=== PATIENT | male | born 1980 | race Two or more races ===

== ENCOUNTER 2016-04-20 14:50 | Inpatient (IN) | payer OTHER ==
[2016-04-20 18:07] VITALS: BMI 31.0
--- NOTE | 2016-04-20 21:58 | HP ---
COWS - Scale Resting Pulse: 0= [place] 80 or Below Sweatin=Flushed/Facial Moisture Restless Observation: 3= Extraneous Movement Pupil Size: 0= Normal to Room Light Bone or Joint Aches: 2= Severe Diffuse Aches Runny Nose/ Eye Tearin= Runny Nose/Eyes GI Upset > 30mins: 3= Vomiting/Diarrhea Tremor Observation: 1= Tremor [place], Not Seen Yawning Observation: 1= 1-2x During Session Anxiety or Irritability: 2=Irritable/Anxious Goose Flesh Skin: 0=Smooth Skin COWS Score: 16 CIWA Score - CIWA Score Nausea/Vomitin Muscle Tremors: 2 Anxiety: 2 Agitation: 2 Paroxysmal Sweats: 2 Orientation: 1-Uncertain about Date Tacttile Disturbances: 0-None Auditory Disturbances: 0-None Visual Disturbances: 0-None Headache: 1-Very Mild CIWA-Ar Total Score: 15 Admission ROS S - HPI Chief Complaint: WITHDRAWAL SYMPTOMS Allergies/Adverse Reactions: Allergies Allergy/AdvReac Type Severity Reaction Status Date / Time aspirin Allergy Intermediate Nausea Verified 01/23/16 12:29 ibuprofen Allergy Nausea Verified 01/23/16 12:29 chlorpromazine HCl AdvReac Severe Swelling Verified 01/23/16 12:29 [From Thorazine] haloperidol [From Haldol] AdvReac Severe Swelling Verified 01/23/16 12:29 haloperidol lactate AdvReac Severe Swelling Verified 01/23/16 12:29 [From Haldol] History of Present Illness: 36 Y.O. MAN WITH AN EXTENSIVE HISTORY OF DRUG AND ALCOHOL DEPENDENCE IS SEEKING DETOX TREATMENT. HE HAS PREVIOUSLY COMPLETED DETOX AND REPORTS HAVING A HISTORY OF 3 YEARS OF SOBRIETY. Exam Limitations: No Limitations - Ebola screening Have you traveled outside of the country in the last 21 days: No Have you been sick,other than usual withdrawal symptoms: No - Review of Systems Constitutional: Chills, Diaphoresis, Loss of Appetite, Night Sweats, Changes in sleep EENT: reports: Blurred Vision, Double Vision, Tearing, Nose Congestion Respiratory: reports: No Symptoms reported Cardiac: reports: Lightheadedness GI: reports: Nausea, Vomiting : reports: No Symptoms Reported Musculoskeletal: reports: Back Pain, Other (ARTHRITIS TO B/L KNEES) Integumentary: reports: Dryness Neuro: reports: Headache, Seizure (ETOH INDUCED) Endocrine: reports: No Symptoms Reported Hematology: reports: No Symptoms Reported Psychiatric: reports: Judgement Intact, Depressed Other Systems: Reviewed and Negative Patient History - Patient Medical History Hx Anemia: No Hx Asthma: No Hx Chronic Obstructive Pulmonary Disease (COPD): No Hx Cancer: No Hx Cardiac Disorders: No Hx Congestive Heart Failure: No Hx Hypertension: No Hx Hypercholesterolemia: No Hx Pacemaker: No HX Cerebrovascular Accident: No Hx Seizures: Yes (ETOH INDUCED-2016) Hx Dementia: No Hx Diabetes: No Hx Gastrointestinal Disorders: No Hx Liver Disease: No Hx Genitourinary Disorders: No Hx Sexually Transmitted Disorders: No Hx Renal Disease (ESRD): No Hx Thyroid Disease: No Hx Human Immunodeficiency Virus (HIV): No (Last Tested: 2016: NEGATIVE.) Hx Hepatitis C: No (Uncertain if he has ever been tested.) Hx Depression: Yes (No meds.) Hx Suicide Attempt: No (PT. DENIES CURRENT SI / HI.) Hx Bipolar Disorder: Yes (No current meds. Stopped previous meds. b/c of side effects.) Hx Schizophrenia: No - Patient Surgical History Past Surgical History: Yes Hx Neurologic Surgery: No Hx Cataract Extraction: No Hx Cardiac Surgery: No Hx Lung Surgery: No Hx Breast Surgery: No Hx Breast Biopsy: No Hx Abdominal Surgery: No Hx Appendectomy: No Hx Cholecystectomy: No Hx Genitourinary Surgery: No Hx Section: No Hx Orthopedic Surgery: Yes (reconstructive knee sx as a child) Anesthesia Reaction: No - PPD History Date: 08/06/12 Results: positive PPD PPD to be Administered?: No - Reproductive History Patient is a Female of Child Bearing Age (11 -55 yrs old): No - Smoking Cessation Smoking history: Current every day smoker Have you smoked in the past 12 months: Yes Aproximately how many cigarettes per day: 7 Cigars Per Day: 0 Hx Chewing Tobacco Use: No Initiated information on smoking cessation: Yes 'Breaking Loose' booklet given: 04/20/16 - Substance & Tx. History Hx Alcohol Use: Yes Hx Substance Use: Yes Substance Use Type: Alcohol, Heroin Hx Substance Use Treatment: Yes (DETOX AND REHAB ) - Substances Abused Alcohol Route: Oral Frequency: Daily Amount used: 2-3 PINTS OF LIQUOR Age of first use: 13 Date of Last Use: 04/20/16 Heroin Route: Inhalation Frequency: 3-6 times per week Amount used: 1-2 BAGS Age of first use: 35 Date of Last Use: 04/20/16 Family Disease History - Family Disease History Family Disease History: Other: Father (ETOH DEPENDENCE ) Admission Physical Exam [facility] - Vital Signs Vital Signs: Vital Signs - 24 hr 04/20/16 18:05 Temperature 98.5 F Pulse Rate 66 Respiratory 18 Rate Blood Pressure 128/75 - Physical General Appearance: Yes: Disheveled, Sweating, Anxious HEENTM: Yes: Hearing grossly Normal, Normal ENT Inspection, Normocephalic, Normal Voice Respiratory: Yes: Chest Non-Tender, Lungs Clear, Normal Breath Sounds, No Respiratory Distress, No Accessory Muscle Use Neck: Yes: No masses,lesions,Nodules, Supple, Trachea in good position Breast: Yes: Breast Exam Deferred Cardiology: Yes: Regular Rhythm, Regular Rate, S1, S2 Abdominal: Yes: Non Tender, Flat, Soft Genitourinary: Yes: Within Normal Limits Back: Yes: Normal Inspection Musculoskeletal: Yes: full range of Motion, Gait Steady Extremities: Yes: Normal Capillary Refill, Normal Inspection, Normal Range of Motion, Non-Tender Neurological: Yes: Alert, Normal Mood/Affect, Normal Response Integumentary: Yes: Normal Color, Dry, Warm Lymphatic: Yes: Within Normal Limits - Diagnostic (1) Alcohol dependence with uncomplicated withdrawal Current Visit: Yes Status: Chronic (2) Alcohol related seizure Current Visit: No Status: Chronic (3) Arthritis Current Visit: Yes Status: Chronic (4) Opioid dependence with withdrawal Current Visit: Yes Status: Chronic Cleared for Admission [facility] - Detox or Rehab [facility] Level of Care: Medically Managed Detox Regimen/Protocol: Methadone/Librium [facility] Breath Alcohol Content Breath Alcohol Content: 0 Urine Drug Screen - Results Drug Screen Negative: No Urine Drug Screen Results: OPI-Opiates
[2016-04-20] MEDS ORDERED: guaiFENesin/D-METHORPHAN HB 10 ML UNIT-DOSE CUPS PO PRN (22:09)
[2016-04-20] MEDS ORDERED: MAGNESIUM HYDROX 2400MG/30ML ORAL SUSPENSION 30 ML CUP PO PRN (22:09)
[2016-04-20] MEDS ORDERED: LOPERAMIDE HCL 2 MG CAPSULE PO PRN (22:09)
[2016-04-20] MEDS ORDERED: P-EPHED 60MG/TRIPROLIDI 2.5MG TABLET PO PRN (22:09)
[2016-04-20] MEDS ORDERED: chlordiazePOXIDE HCL 25 MG CAPSULE PO ONE (22:09)
[2016-04-20] MEDS ORDERED: hydrOXYzine PAMOATE 50 MG CAPSULE (FP) PO PRN (22:09)
[2016-04-20] MEDS ORDERED: MAGNESIUM CITRATE 300 ML BOTTLE PO PRN (22:09)
[2016-04-20] MEDS ORDERED: METHADONE HCL 10 MG TABLET (FOR DETOX USE ONLY) PO ONE ×2 (22:09→23:00)
[2016-04-20] MEDS ORDERED: MENTHOL/PHENOL 1 EACH UD MM PRN (22:09)
[2016-04-20] MEDS ORDERED: ACETAMINOPHEN 325 MG TABLET (FP) PO PRN (22:09)
[2016-04-20] MEDS ORDERED: diphenhydrAMINE HCL 50 MG CAPSULE PO PRN (22:09)
[2016-04-20] MEDS ORDERED: MAG HYDROX/AL HYDROX/SIMETH 30 ML UNIT-DOSE CUP PO PRN (22:09)
[2016-04-20] MEDS: chlordiazePOXIDE HCL 25 MG CAPSULE PO SCH (23:39)
[2016-04-20] MEDS: MINERAL OIL/PETROLAT/WATER TOPICAL CREAM 113 GM JAR TP SCH (23:55)
[2016-04-20] MEDS: TOLNAFTATE 1% CREAM 15 GM TUBE TP SCH (23:55)
[2016-04-21] MEDS: chlordiazePOXIDE HCL 25 MG CAPSULE PO PRN ×2 (03:03→13:13)
[2016-04-21] MEDS: chlordiazePOXIDE HCL 25 MG CAPSULE PO SCH ×2 (05:25→10:24)
--- NOTE | 2016-04-21 09:41 | PN ---
[facility] CIWA - CIWA Score Nausea/Vomitin Muscle Tremors: 3 Anxiety: 3 Agitation: 2 Paroxysmal Sweats: 1-Minimal Palms Moist Orientation: 0-Oriented Tacttile Disturbances: 1-Very Mild Itch/Numbness Auditory Disturbances: 1-Very Mild Visual Disturbances: 1-Very Mild Sensitivity Headache: 2-Mild CIWA-Ar Total Score: 17 [facility] COWS - Scale Resting Pulse: 0= [place] 80 or Below Sweatin= Chills/Flushing Restless Observation: 3= Extraneous Movement Pupil Size: 1= Pupils >than Normal Bone or Joint Aches: 2= Severe Diffuse Aches Runny Nose/ Eye Tearin= Runny Nose/Eyes GI Upset > 30mins: 3= Vomiting/Diarrhea Tremor Observation of Outstretched Hands: 2= Slight Tremor Visible Yawning Observation: 1= 1-2x During Session Anxiety or Irritability: 2=Irritable/Anxious Goose Flesh Skin: 0=Smooth Skin COWS Score: 17 [facility] Progress Note (SOAP) Subjective: ALERT,IRRITABLE,ANXIOUS,INTERRUPTED SLEEP,TREMOR,PAIN IN THE BODY AND BACK Objective: 04/21/16 09:39 Vital Signs Temperature 98.3 F 04/21/16 06:23 Pulse Rate 60 04/21/16 06:23 Respiratory Rate 16 04/21/16 06:23 Blood Pressure 122/74 04/21/16 06:23 O2 Sat by Pulse Oximetry (%) EKG SINUS BRADYCARDIA 48/MIN NO CHEST PAIN,NO SOB,NO DIZZINESS LABS PENDING Assessment: 04/21/16 09:40 WITHDRAWAL SYMPTOM Plan: CONTINUE DETOX
[2016-04-21] MEDS ORDERED: PRENATAL VITAMINS W/ FOLIC ACID TABLET (FP) PO SCH (10:00)
[2016-04-21] MEDS ORDERED: METHADONE HCL 10 MG TABLET (FOR DETOX USE ONLY) PO SCH (10:00)
[2016-04-21] MEDS: TOLNAFTATE 1% CREAM 15 GM TUBE TP SCH (10:25)
[2016-04-21] MEDS: MINERAL OIL/PETROLAT/WATER TOPICAL CREAM 113 GM JAR TP SCH (10:25)
[2016-04-21] MEDS ORDERED: COLLOIDAL OATMEAL 1 BAR EACH TP PRN (10:28)
[2016-04-21 11:22] LABS: MCHC 33.7 g/dl (32.0-35.9); MEAN CELL VOLUME 97.8 fl (80-96); MEAN PLT VOLUME 10.5 fl (7.5-11.1); PLATELET COUNT 149 K/MM3 (134-434); RDW 14.2 % (11.9-15.9); WHITE BLOOD COUNT 7.4 K/mm3 (4.0-10.0)
[2016-04-21 11:40] LABS: ALBUMIN 3.9 g/dl (3.4-5.0); ALK PHOS 80 U/L (45-117); ANION GAP 7 (8-16); BILIRUBIN,TOTAL 0.5 mg/dL (0.2-1.0); CALCIUM 8.8 mg/dL (8.5-10.1); CO2 29 mmol/L (21-32); CREATININE 0.8 mg/dL (0.7-1.3); GLUCOSE,RANDOM 71 mg/dL (74-106); SGOT/AST 21 U/L (15-37); SGPT/ALT 14 U/L (12-78); TOT PROT 7.3 g/dl (6.4-8.2)
[2016-04-21 12:55] LABS: URINE APPEARANCE CLEAR; URINE BILIRUBIN NEGATIVE (NEGATIVE); URINE COLOR YELLOW; URINE GLUCOSE (UA) NEGATIVE (NEGATIVE); URINE KETONE NEGATIVE (NEGATIVE); URINE LEUK ESTERASE NEGATIVE (NEGATIVE); URINE NITRITE NEGATIVE (NEGATIVE); URINE PROTEIN NEGATIVE (NEGATIVE); URINE UROBILINOGEN NEGATIVE E.U./dl (0.2-1.0)
[2016-04-21 13:00] LABS: URINE BLOOD 1+ (NEGATIVE)
[2016-04-21 13:09] LABS: URINE BACTERIA RARE /hpf (NONE SEEN); URINE MUCUS RARE; URINE RBC 9 /hpf (0-3); URINE WBC 1 /hpf (3-5)
--- NOTE | 2016-04-21 13:30 | CONSULT ---
[facility] Psychiatric Consult - Data Date of interview: 04/21/16 Admission source: [facility] Identifying data: Another admission to [facility] for this 36 y/o male seeking detox treatment on for heroin and alcohol dependence.Patient is single,a father of two,domiciled,unemployed and supported on [facility] benefits. Substance Abuse History: - Smoking Cessation. Smoking history: Current every day smoker. Have you smoked in the past 12 months: Yes. Aproximately how many cigarettes per day: 7. Cigars Per Day: 0. Hx Chewing Tobacco Use: No. Initiated information on smoking cessation: Yes. 'Breaking Loose' booklet given : 04/20/16. - Substance & Tx. History. Hx Alcohol Use: Yes. Hx Substance Use : Yes. Substance Use Type: Alcohol, Heroin. Hx Substance Use Treatment: Yes ( DETOX AND REHAB ). - Substances Abused. Alcohol. Route: Oral. Frequency: Daily. Amount used: 2-3 PINTS OF LIQUOR. Age of first use: 13. Date of Last Use: 04/20/16. Heroin. Route: Inhalation. Frequency: 3-6 times per week. Amount used: 1-2 BAGS. Age of first use: 35. Date of Last Use: 04/20/16. Confirmed by patient in this interview. Medical History: Arthritis,low back pain and a history of substance-related seizures. Psychiatric History: History of multiple psychiatric hospitalizations (onset at age 16).Diagnosed with Bipolar Disorder.Records indicate treatment with numerous medications (bupropion,neurontin,risperdal,seroquel,topiramate,klonopin ,valproate,quetiapine and others).Mr Walker reports non adherence to aftercare ( for more than three consecutive months).He is still assigned to [facility] but he reports that he has not kept his appointments.History of past treatment at [facility], [facility] and [facility].Shows no interest for psychiatric care.Mr Walker declines to resume psychotropic medications with the exception of his detox regimen.Patient complains of chronic insomnia and he requests zolpidem at bedtime.No reported history of suicide attempts. Physical/Sexual Abuse/Trauma History: Patient denies. Additional Comment: Urine Drug Screen Results: OPI-Opiates.Noted. Mental Status Exam - Mental Status Exam Alert and Oriented to: Time, Place, Person Cognitive Function: Good Patient Appearance: Well Groomed Mood: Euthymic Affect: Appropriate, Normal Range Patient Behavior: Fatigued, Appropriate, Cooperative Speech Pattern: Clear Voice Loudness: Normal Thought Process: Goal Oriented Thought Disorder: Not Present Hallucinations: Denies Suicidal Ideation: Denies Homicidal Ideation: Denies Insight/Judgement: Poor Sleep: Poorly, Difficulty falling asleep Appetite: Good Muscle strength/Tone: Normal Gait/Station: Normal Psychiatric Findings - Problem List ([place] 1, 2,3) (1) Alcohol dependence with uncomplicated withdrawal Current Visit: Yes Status: Acute (2) Opioid dependence with withdrawal Current Visit: Yes Status: Acute (3) Nicotine dependence Current Visit: Yes Status: Acute Qualifiers: Nicotine product type: cigarettes Substance use status: uncomplicated Qualified Code(s): F17.210 - Nicotine dependence, cigarettes, uncomplicated (4) Substance induced mood disorder Current Visit: Yes Status: Acute (5) Bipolar disorder Current Visit: Yes Status: Chronic Qualifiers: Active/Remission status: currently active Current episode severity: moderate Comment: Historical diagnosis. (6) Arthritis Current Visit: Yes Status: Chronic (7) Paronychia of finger Current Visit: Yes Status: Acute Qualifiers: Laterality: right Qualified Code(s): L03.011 - Cellulitis of right finger (8) Low back pain Current Visit: Yes Status: Chronic Qualifiers: Chronicity: chronic Back pain laterality: bilateral Sciatica presence: with sciatica presence unspecified Qualified Code(s): M54.5 - Low back pain (9) Insomnia Current Visit: Yes Status: Acute - Initial Treatment Plan Initial Treatment Plan: Psychoeducation.Detoxification.Zolpidem 10 mg po hs prn.Patient made aware of the risk of parasomnias.He agrees with this plan.Observation.
[2016-04-21] MEDS ORDERED: ZOLPIDEM TARTRATE 5 MG TABLET PO PRN ×2 (13:32→13:50)
[2016-04-21 14:19] VITALS: BP 144/98; PULSE 58; TEMP 98.5
[2016-04-21] MEDS ORDERED: VITAMINS A AND D TOPICAL OINTMENT 60 GM TUBE TP SCH (18:00)
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
--- NOTE | 2016-04-21 18:48 | DS ---
[facility] Detox Discharge Summary Admission Date: 04/20/16 Discharge Date: 04/21/16 - History Present History: Alcohol Dependence, Opioid Dependence Additional Comments: patient is threatening to kill the nursing staff,securities called and present on the unit,administrative discharge,escorted off unit by securities, nursing crossing supervisor on duty present on the unit Pertinent Past History: seizure arthritis bipolar disorder nicotine dependence - Physical Exam Results Vital Signs: Vital Signs Temperature 98.5 F 04/21/16 14:19 Pulse Rate 58 L 04/21/16 14:19 Respiratory Rate 20 04/21/16 14:19 Blood Pressure 144/98 04/21/16 14:19 O2 Sat by Pulse Oximetry (%) Pertinent Admission Physical Exam Findings: withdrawal symptom - Medication Discharge Medications: Ambulatory Orders Sulfamethoxazole/Trimethoprim [Bactrim Ds Tablet] 1 each PO BID #14 tablet 01/22 Sulfamethoxazole/Trimethoprim [Bactrim DS -] 1 each PO BID #10 tablet 01/25/16 - Diagnosis (1) Alcohol dependence with uncomplicated withdrawal Status: Acute (2) Insomnia Status: Acute (3) Nicotine dependence Status: Acute Qualifiers: Nicotine product type: cigarettes Substance use status: uncomplicated Qualified Code(s): F17.210 - Nicotine dependence, cigarettes, uncomplicated (4) Opioid dependence with withdrawal Status: Acute (5) Arthritis Status: Chronic (6) Bipolar disorder Status: Chronic Qualifiers: Active/Remission status: currently active Current episode severity: moderate (7) Seizure Status: Chronic Qualifiers: Convulsion type: simple febrile Qualified Code(s): R56.00 - Simple febrile convulsions
[2016-04-21] MEDS ORDERED: THIAMINE HCL 100 MG TABLET (FP) PO SCH (22:00)
[2016-04-21] MEDS ORDERED: chlordiazePOXIDE HCL 25 MG CAPSULE PO SCH (23:00)
[2016-04-22] MEDS ORDERED: METHADONE HCL 5 MG TABLET (FOR DETOX USE ONLY) PO SCH (10:00)
--- NOTE | 2016-04-22 22:45 | EKG ---
Test Reason : Blood Pressure : / mmHG Vent. Rate : 048 BPM Atrial Rate : 048 BPM P-R Int : 184 ms QRS Dur : 092 ms QT Int : 396 ms P-R-T Axes : 043 081 064 degrees QTc Int : 353 ms SINUS BRADYCARDIA EARLY REPOLARIZATION OTHERWISE NORMAL ECG NO PREVIOUS ECGS AVAILABLE Confirmed by TASH CLANCY MD ([id number]) on 04/22/2016 10:45:32 PM Referred By: Denys Thomas Confirmed By:TASH CLANCY MD
[2016-04-22] MEDS ORDERED: chlordiazePOXIDE 5 MG CAPSULE PO SCH (23:00)
[2016-04-23] MEDS ORDERED: chlordiazePOXIDE HCL 10 MG CAPSULE PO SCH (23:00)
[2016-04-24] MEDS ORDERED: METHADONE HCL 10 MG TABLET (FOR DETOX USE ONLY) PO SCH (10:00)
[2016-04-25] MEDS ORDERED: METHADONE HCL 5 MG TABLET (FOR DETOX USE ONLY) PO SCH (06:00)
== END 2016-04-21 17:00 | disposition home or self-care (01) | DRG 773 ==
LOC: YASAS 14:50 → Y6N 21:20
PROVIDERS: ADMIT Internal Medicine; ATTEND Internal Medicine
PROC: HZ2ZZZZ Detoxification Services for Substance Abuse Treatment (ICD-10-PCS; principal; 2016-04-21)
DX: F11.23 Opioid dependence with withdrawal (principal); F10.230 Alcohol dependence with withdrawal, uncomplicated; F17.210 Nicotine dependence, cigarettes, uncomplicated; F31.9 Bipolar disorder, unspecified; F19.24 Other psychoactive substance dependence with psychoactive substance-induced mood disorder; G47.00 Insomnia, unspecified; R56.00 Simple febrile convulsions; M12.9 Arthropathy, unspecified; L03.011 Cellulitis of right finger; M54.5 Low back pain; G89.29 Other chronic pain; F91.8 Other conduct disorders
CPT/HCPCS: 36415; 80053; 81003; 81015; 85027; 86593; 93005; 93010

== ENCOUNTER 2018-02-05 12:24 | Inpatient (IN) | payer OTHER ==
[2018-02-05 15:37] VITALS: BMI 27.1
--- NOTE | 2018-02-05 18:00 | HP ---
CIWA Score Nausea/Vomitin-Mild Nausea/No Vomiting Muscle Tremors: 1-None Visible, but [place] Anxiety: 4-Mod. Anxious/Guarded Agitation: 4-Moderately Restless Paroxysmal Sweats: 5 Orientation: 3-Disoriented Date>2 days Tacttile Disturbances: 2-Mild Itch/Numbness/Burn Auditory Disturbances: 1-Very Mild Visual Disturbances: 2-Mild Sensitivity Headache: 3-Moderate CIWA-Ar Total Score: 26 - Admission Criteria [facility] Guidelines: Admission for Medically Managed Detox: Requires at least one of the followin. CIWA greater than 12 2. Seizures within the past 24 hours 3. Delirium tremens within the past 24 hours 4. Hallucinations within the past 24 hours 5. Acute intervention needed for co occurring medical disorder 6. Acute intervention needed for co occurring psychiatric disorder 7. Severe withdrawal that cannot be handled at a lower level of care (continued vomiting, continued diarrhea, abnormal vital signs) requiring intravenous medication and/or fluids 8. Patient presents the following: Acute intervention needed for co-occurring med or psych disorder Admission Criteria Met: Admission criteria met Admission ROS [facility] Chief Complaint: SEEKING DETOX FOR C/O WITHDRAWAL SX'S R/T ALCOHOL Allergies/Adverse Reactions: Allergies Allergy/AdvReac Type Severity Reaction Status Date / Time aspirin Allergy Intermediate Nausea Verified 06/03/17 19:50 ibuprofen Allergy Nausea Verified 06/03/17 19:50 chlorpromazine HCl AdvReac Severe Swelling Verified 06/03/17 19:50 [From Thorazine] haloperidol [From Haldol] AdvReac Severe Swelling Verified 06/03/17 19:50 haloperidol lactate AdvReac Severe Swelling Verified 06/03/17 19:50 [From Haldol] History of Present Illness: 38 Y.O. MALE WITH HX/O ALCOHOLISM KNOWN TO US HERE FOR DETOX. CLIENT LAST HERE . REFERRED BY HIS OUTREACH PROGRAM.PRESENTS WITH C/O WITHDRAWAL SXS. CIWA 26. REPORTS LONGEST CLEAN TIME 3 YEARS SELF MAINTAINED. REPORTS MOST RECENT 4 MONTHS THIS PAST YEAR. REPORTS HX/ O DT'S, BLACK OUTS. REPORTS HX/O SI/HI BUT PRESENTLY DENIES. DENIES HX/O SEIZURES. LIVES ALONE, DENIES LEGALS, UNEMPLOYED- SSI. PMHX- OA PSYCH- SCHIZOPHRENIA, ANXIETY, MEDS- NON COMPLAINT Exam Limitations: No Limitations - Ebola screening Have you traveled outside of the country in the last 21 days: No Have you had contact with anyone from an Ebola affected area: No Have you been sick,other than usual withdrawal symptoms: No - Review of Systems Constitutional: Chills, Loss of Appetite, Malaise, Night Sweats, Changes in sleep EENT: reports: Dental Problems (MISSING TEETH) Respiratory: reports: Shortness of Breath Cardiac: reports: Edema (REPORTED BLE) GI: reports: Nausea, Poor Appetite, Poor Fluid Intake, Vomiting, Abdominal cramping, Other (RETCHING) : reports: No Symptoms Reported Musculoskeletal: reports: Back Pain, Joint Pain, Neck Pain, Joint Stiffness Integumentary: reports: No Symptoms Reported Neuro: reports: No Symptoms reported Hematology: reports: No Symptoms Reported Psychiatric: reports: Anxious, Depressed Other Systems: Reviewed and Negative Patient History - Patient Medical History Hx Anemia: No Hx Asthma: No Hx Chronic Obstructive Pulmonary Disease (COPD): No Hx Cancer: No Hx Cardiac Disorders: No Hx Congestive Heart Failure: No Hx Hypertension: No Hx Hypercholesterolemia: No Hx Pacemaker: No HX Cerebrovascular Accident: No Hx Seizures: Yes (POOR HISTORIAN) Hx Dementia: No Hx Diabetes: No Hx Gastrointestinal Disorders: No Hx Liver Disease: No Hx Genitourinary Disorders: No Hx Sexually Transmitted Disorders: No Hx Renal Disease (ESRD): No Hx Thyroid Disease: No Hx Human Immunodeficiency Virus (HIV): No Hx Hepatitis C: No Hx Depression: Yes Hx Suicide Attempt: No Hx Bipolar Disorder: No Hx Schizophrenia: Yes - Patient Surgical History Past Surgical History: Yes Hx Neurologic Surgery: No Hx Cataract Extraction: No Hx Cardiac Surgery: No Hx Lung Surgery: No Hx Breast Surgery: No Hx Breast Biopsy: No Hx Abdominal Surgery: No Hx Appendectomy: No Hx Cholecystectomy: No Hx Genitourinary Surgery: No Hx Section: No Hx Orthopedic Surgery: Yes (reconstructive knee sx as a child) Anesthesia Reaction: No - PPD History Previous Implant?: Yes Documented Results: Positive w/o proof Date: 08/06/12 Results: positive PPD PPD to be Administered?: No - Smoking Cessation Smoking history: Current every day smoker Have you smoked in the past 12 months: Yes Aproximately how many cigarettes per day: 7 Cigars Per Day: 0 Hx Chewing Tobacco Use: No Initiated information on smoking cessation: Yes 'Breaking Loose' booklet given: 02/05/18 - Substance & Tx. History Hx Alcohol Use: Yes Hx Substance Use: Yes Substance Use Type: Alcohol Hx Substance Use Treatment: Yes ([facility]) - Substances Abused Alcohol Route: Oral Frequency: Daily Amount used: Vodka 1 liter, Beer 6 cans, Liquor 1 liter Age of first use: 13 Date of Last Use: 02/05/18 Family Disease History - Family Disease History Family Disease History: Other: Father (ETOH DEPENDENCE ) Admission Physical Exam [facility] - Vital Signs Vital Signs: Vital Signs - 24 hr 02/05/18 15:30 Temperature 97.5 F L Pulse Rate 83 Respiratory 18 Rate Blood Pressure 117/67 - Physical General Appearance: Yes: Appropriately Dressed, Mild Distress, Alcohol on Breath , Tremorous (FELT), Anxious HEENTM: Yes: EOMI, Normocephalic, Normal Voice, GUS, Pharynx Normal, Other ( MISSING TEETH) Respiratory: Yes: Chest Non-Tender, Lungs Clear, Normal Breath Sounds, No Respiratory Distress, No Accessory Muscle Use Neck: Yes: No masses,lesions,Nodules, Supple, Trachea in good position Breast: Yes: Breast Exam Deferred Cardiology: Yes: Regular Rhythm, Regular Rate, S1, S2 Abdominal: Yes: Non Tender, Soft, Increased Bowel Sounds Genitourinary: Yes: Within Normal Limits Back: Yes: Normal Inspection Musculoskeletal: Yes: full range of Motion, Gait Steady Extremities: Yes: Normal Capillary Refill, Normal Range of Motion, Non-Tender, Tremors (FELT) Neurological: Yes: Fully Oriented, Alert, Motor Strength 5/5, Disoriented ( REORIENTATED TO DATE) Integumentary: Yes: Warm, Moist Lymphatic: Yes: Within Normal Limits - Diagnostic (1) History of positive PPD Current Visit: Yes Status: Chronic (2) Substance-induced sleep disorder Current Visit: Yes Status: Chronic (3) Alcohol dependence with uncomplicated withdrawal Current Visit: Yes Status: Acute (4) Nicotine dependence Current Visit: Yes Status: Chronic Qualifiers: Nicotine product type: cigarettes Substance use status: in withdrawal Qualified Code(s): F17.213 - Nicotine dependence, cigarettes, with withdrawal (5) Substance induced mood disorder Current Visit: Yes Status: Chronic (6) Arthritis Current Visit: Yes Status: Chronic Cleared for Admission [facility] - Detox or Rehab [facility] Level of Care: Medically Managed Detox Regimen/Protocol: Librium Claeared for Rehab Admission: No [facility] Breath Alcohol Content Breath Alcohol Content: 0.012 Urine Drug Screen - Results Drug Screen Negative: Yes
[2018-02-05] MEDS ORDERED: MAG HYDROX/AL HYDROX/SIMETH 30 ML UNIT-DOSE CUP PO PRN (18:16)
[2018-02-05] MEDS ORDERED: MAGNESIUM CITRATE 300 ML BOTTLE PO PRN (18:16)
[2018-02-05] MEDS ORDERED: ACETAMINOPHEN 325 MG TABLET (FP) PO PRN (18:16)
[2018-02-05] MEDS ORDERED: MAGNESIUM HYDROX 2400MG/30ML ORAL SUSPENSION 30 ML CUP PO PRN (18:16)
[2018-02-05] MEDS ORDERED: guaiFENesin/D-METHORPHAN HB 10 ML UNIT-DOSE CUPS PO PRN (18:16)
[2018-02-05] MEDS ORDERED: LOPERAMIDE HCL 2 MG CAPSULE PO PRN (18:16)
[2018-02-05] MEDS ORDERED: P-EPHED 60MG/TRIPROLIDI 2.5MG TABLET PO PRN (18:16)
[2018-02-05] MEDS ORDERED: MENTHOL/PHENOL 1 EACH UD MM PRN (18:16)
[2018-02-05] MEDS ORDERED: NICOTINE POLACRILEX 2 MG GUM BC PRN (18:16)
[2018-02-05] MEDS: chlordiazePOXIDE HCL 25 MG CAPSULE PO PRN (19:05)
[2018-02-05] MEDS: MELATONIN 5 MG TABLETS PO PRN (22:59)
[2018-02-05] MEDS: THIAMINE HCL 100 MG TABLET (FP) PO SCH (22:59)
[2018-02-05] MEDS: chlordiazePOXIDE HCL 25 MG CAPSULE PO SCH (22:59)
[2018-02-06] MEDS: chlordiazePOXIDE HCL 25 MG CAPSULE PO SCH ×4 (05:35→22:37)
[2018-02-06] MEDS: hydrOXYzine PAMOATE 50 MG CAPSULE (FP) PO PRN ×2 (10:09→21:33)
[2018-02-06] MEDS: PRENATAL VITAMINS W/ FOLIC ACID TABLET (FP) PO SCH (10:09)
[2018-02-06 10:23] LABS: HEMATOCRIT 40.8 % (35.4-49); HEMOGLOBIN 13.5 GM/dL (11.7-16.9); MCH 33.5 pg (25.7-33.7); MCHC 33.1 g/dl (32.0-35.9); MEAN CELL VOLUME 101.2 fl (80-96); MEAN PLT VOLUME 10.7 fl (7.5-11.1); PLATELET COUNT 154 K/MM3 (134-434); RBC 4.03 M/mm3 (4.00-5.60); RDW 14.7 % (11.9-15.9); WHITE BLOOD COUNT 6.4 K/mm3 (4.0-10.0)
[2018-02-06 10:44] LABS: ALBUMIN 3.3 g/dl (3.4-5.0); ALK PHOS 97 U/L (45-117); ANION GAP 6 MMOL/L (8-16); BILIRUBIN,TOTAL 0.6 mg/dL (0.2-1); BLOOD UREA NITROGEN 11 mg/dL (7-18); CALCIUM 7.9 mg/dL (8.5-10.1); CHLORIDE 107 mmol/L (98-107); CO2 27 mmol/L (21-32); CREATININE 0.7 mg/dL (0.55-1.3); GLUCOSE,RANDOM 87 mg/dL (74-106); POTASSIUM 3.9 mmol/L (3.5-5.1); SGOT/AST 25 U/L (15-37); SGPT/ALT 15 U/L (13-61); SODIUM 140 mmol/L (136-145); TOT PROT 6.5 g/dl (6.4-8.2)
[2018-02-06] MEDS: NICOTINE 14 MG/24 HOURS TOPICAL PATCH TD SCH (11:14)
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
--- NOTE | 2018-02-06 13:08 | PN ---
S CIWA - CIWA Score Nausea/Vomitin Muscle Tremors: 2 Anxiety: 1-Mildly Anxious Agitation: 1-Slight > Activity Paroxysmal Sweats: 3 Orientation: 0-Oriented Tacttile Disturbances: 0-None Auditory Disturbances: 0-None Visual Disturbances: 0-None Headache: 0-None Present CIWA-Ar Total Score: 10 BHS Progress Note (SOAP) Subjective: PATIENT C/O CHILLS, SHAKES, NAUSEA AND DIARRHEA. APPETITE POOR. Objective: 02/06/18 13:06 Vital Signs Temperature 98 F 02/06/18 09:05 Pulse Rate 58 L 02/06/18 09:05 Respiratory Rate 20 02/06/18 09:05 Blood Pressure 98/57 L 02/06/18 09:05 O2 Sat by Pulse Oximetry (%) Laboratory Tests 02/06/18 02/06/18 02/06/18 07:30 07:30 07:30 WBC 6.4 RBC 4.03 Hgb 13.5 Hct 40.8 MCV 101.2 H MCH 33.5 MCHC 33.1 RDW 14.7 Plt Count 154 MPV 10.7 D Sodium 140 Potassium 3.9 Chloride 107 Carbon Dioxide 27 Anion Gap 6 L BUN 11 Creatinine 0.7 Creat Clearance w eGFR > 60 Random Glucose 87 Calcium 7.9 L Total Bilirubin 0.6 AST 25 ALT 15 Alkaline Phosphatase 97 Total Protein 6.5 Albumin 3.3 L RPR Titer Nonreactive PE: ALERT AND ORIENTED X 3 SKIN WARM WITH FACIAL MOISTURE GI SOFT, BS+, NT EXT FULL ROM, MILD TREMORS AMB AD AFSHIN Assessment: 02/06/18 13:07 WITHDRAWAL SX Plan: CONTINUE DETOX ENCOURAGE FLUIDS ADD ENSURE TO DIET AVEENO SOAP MONITOR
[2018-02-06] MEDS: COLLOIDAL OATMEAL 1 BAR EACH TP PRN (15:39)
[2018-02-06] MEDS: THIAMINE HCL 100 MG TABLET (FP) PO SCH (22:36)
[2018-02-06] MEDS: MELATONIN 5 MG TABLETS PO PRN (22:36)
[2018-02-06] MEDS: QUEtiapine FUMARATE 100 MG TABLET (FP) PO SCH (22:37)
[2018-02-07] MEDS: chlordiazePOXIDE HCL 25 MG CAPSULE PO SCH ×3 (06:23→17:41)
--- NOTE | 2018-02-07 10:13 | PN ---
S CIWA - CIWA Score Nausea/Vomitin Muscle Tremors: None Anxiety: 3 Agitation: 3 Paroxysmal Sweats: No Perspiration Orientation: 0-Oriented Tacttile Disturbances: 0-None Auditory Disturbances: 0-None Visual Disturbances: 0-None Headache: 2-Mild CIWA-Ar Total Score: 11 BHS Progress Note (SOAP) Subjective: PATIENT C/O DIARRHEA, ANXIETY, RESTLESSNESS AND HEADACHE-INTERMITTENT. Objective: 02/07/18 10:10 Vital Signs Temperature 97.2 F L 02/07/18 09:41 Pulse Rate 101 H 02/07/18 09:41 Respiratory Rate 18 02/07/18 09:41 Blood Pressure 139/82 02/07/18 09:41 O2 Sat by Pulse Oximetry (%) Vital Signs Temperature 97.2 F L 02/07/18 09:41 Pulse Rate 101 H 02/07/18 09:41 Respiratory Rate 18 02/07/18 09:41 Blood Pressure 139/82 02/07/18 09:41 O2 Sat by Pulse Oximetry (%) Laboratory Tests 02/06/18 02/06/18 02/06/18 07:30 07:30 07:30 WBC 6.4 RBC 4.03 Hgb 13.5 Hct 40.8 MCV 101.2 H MCH 33.5 MCHC 33.1 RDW 14.7 Plt Count 154 MPV 10.7 D Sodium 140 Potassium 3.9 Chloride 107 Carbon Dioxide 27 Anion Gap 6 L BUN 11 Creatinine 0.7 Creat Clearance w eGFR > 60 Random Glucose 87 Calcium 7.9 L Total Bilirubin 0.6 AST 25 ALT 15 Alkaline Phosphatase 97 Total Protein 6.5 Albumin 3.3 L RPR Titer Nonreactive PE: ALERT AND ORIENTED X 3 SKIN WARM AND DRY EXT FULL ROM, AMB AD AFSHIN,NO TREMORS ANXIOUS/RESTLESS Assessment: 02/07/18 10:12 WITHDRAWAL SX HYPOCALCEMIA Plan: CONTINUE DETOX VITAMIN CONTINUED WILL REPEAT CMP IN AM ORAL FLUIDS ENCOURAGED
[2018-02-07] MEDS: PRENATAL VITAMINS W/ FOLIC ACID TABLET (FP) PO SCH (10:16)
[2018-02-07] MEDS: NICOTINE 14 MG/24 HOURS TOPICAL PATCH TD SCH (10:17)
[2018-02-07] MEDS: chlordiazePOXIDE HCL 25 MG CAPSULE PO PRN (13:25)
[2018-02-07] MEDS: hydrOXYzine PAMOATE 50 MG CAPSULE (FP) PO PRN (17:38)
[2018-02-07] MEDS ORDERED: diazePAM 5 MG TABLET PO ONE (21:32)
[2018-02-07] MEDS: THIAMINE HCL 100 MG TABLET (FP) PO SCH (22:05)
[2018-02-07] MEDS: QUEtiapine FUMARATE 100 MG TABLET (FP) PO SCH (22:06)
[2018-02-07] MEDS: MELATONIN 5 MG TABLETS PO PRN (22:10)
--- NOTE | 2018-02-07 22:57 | PN ---
BHS Progress Note (SOAP) Subjective: Patient states is having allergic reaction to Librium (stomach pains, coughing up blood, and diarrhea) and requesting to be switched to Valium. Yelling about staff spilling some of Librium and then states "I'm allergic to Librium". States it's not from alcohol use. Declines Zantac. Objective: Alert. Agitated. [acing back and forth. Switching topics. Makes comments and then denies it was said. I.e. Stated had stomach pain and at home was on Zantac. When offered to prescribe Zantac, stated I don't have stomach pains. Vital Signs 02/07/18 02/07/18 18:00 22:00 Temperature 98.9 F 98.4 F Pulse Rate 69 64 Respiratory 18 18 Rate Blood Pressure 111/75 128/75 Laboratory Last Values WBC 6.4 K/mm3 (4.0-10.0) 02/06/18 07:30 RBC 4.03 M/mm3 (4.00-5.60) 02/06/18 07:30 Hgb 13.5 GM/dL (11.7-16.9) 02/06/18 07:30 Hct 40.8 % (35.4-49) 02/06/18 07:30 MCV 101.2 fl (80-96) H 02/06/18 07:30 MCH 33.5 pg (25.7-33.7) 02/06/18 07:30 MCHC 33.1 g/dl (32.0-35.9) 02/06/18 07:30 RDW 14.7 % (11.9-15.9) 02/06/18 07:30 Plt Count 154 K/MM3 (134-434) 02/06/18 07:30 MPV 10.7 fl (7.5-11.1) D 02/06/18 07:30 Sodium 140 mmol/L (136-145) 02/06/18 07:30 Potassium 3.9 mmol/L (3.5-5.1) 02/06/18 07:30 Chloride 107 mmol/L (98-107) 02/06/18 07:30 Carbon Dioxide 27 mmol/L (21-32) 02/06/18 07:30 Anion Gap 6 MMOL/L (8-16) L 02/06/18 07:30 BUN 11 mg/dL (7-18) 02/06/18 07:30 Creatinine 0.7 mg/dL (0.55-1.3) 02/06/18 07:30 Creat Clearance w eGFR > 60 (>60) 02/06/18 07:30 Random Glucose 87 mg/dL (74-106) 02/06/18 07:30 Calcium 7.9 mg/dL (8.5-10.1) L 02/06/18 07:30 Total Bilirubin 0.6 mg/dL (0.2-1) 02/06/18 07:30 AST 25 U/L (15-37) 02/06/18 07:30 ALT 15 U/L (13-61) 02/06/18 07:30 Alkaline Phosphatase 97 U/L (45-117) 02/06/18 07:30 Total Protein 6.5 g/dl (6.4-8.2) 02/06/18 07:30 Albumin 3.3 g/dl (3.4-5.0) L 02/06/18 07:30 RPR Titer Nonreactive (NONREACTIVE) 02/06/18 07:30 Labs reviewed. Assessment: Withdrawal symptoms. Plan: D/c Librium. The possibility of symptoms being r/t chronic alcohol use was rejected by the patient. Will add Librium to allergy list. Start on modified Valium detox. Patient to show staff any bloody discharge (cough, vomiting, or diarrhea) to staff.
[2018-02-07] MEDS ORDERED: chlordiazePOXIDE 5 MG CAPSULE PO SCH (23:00)
[2018-02-07] MEDS: diazePAM 5 MG TABLET PO SCH (23:38)
[2018-02-08] MEDS: diazePAM 5 MG TABLET PO SCH ×3 (05:38→22:30)
[2018-02-08] MEDS: hydrOXYzine PAMOATE 50 MG CAPSULE (FP) PO PRN ×2 (06:18→10:11)
[2018-02-08] MEDS: NICOTINE 14 MG/24 HOURS TOPICAL PATCH TD SCH (10:11)
[2018-02-08] MEDS: PRENATAL VITAMINS W/ FOLIC ACID TABLET (FP) PO SCH (10:11)
--- NOTE | 2018-02-08 10:57 | PN ---
BHS Progress Note (SOAP) Subjective: alert,interrupted sleep Objective: 02/08/18 10:56 Vital Signs Temperature 97 F L 02/08/18 06:24 Pulse Rate 72 02/08/18 09:28 Respiratory Rate 18 02/08/18 09:28 Blood Pressure 121/66 02/08/18 09:28 O2 Sat by Pulse Oximetry (%) Assessment: 02/08/18 10:56 withdrawal symptom Plan: continue detox,discharge in am
[2018-02-08] MEDS: COLLOIDAL OATMEAL 1 BAR EACH TP PRN (14:29)
[2018-02-08] MEDS ORDERED: diazePAM 5 MG TABLET PO PRN (17:44)
[2018-02-08] MEDS: THIAMINE HCL 100 MG TABLET (FP) PO SCH (22:30)
[2018-02-08] MEDS: QUEtiapine FUMARATE 100 MG TABLET (FP) PO SCH (22:30)
[2018-02-08] MEDS ORDERED: chlordiazePOXIDE HCL 10 MG CAPSULE PO SCH (23:00)
[2018-02-09 06:20] VITALS: BP 105/56; PULSE 58; TEMP 96.1
[2018-02-09] MEDS: NICOTINE 14 MG/24 HOURS TOPICAL PATCH TD SCH (09:07)
[2018-02-09] MEDS: PRENATAL VITAMINS W/ FOLIC ACID TABLET (FP) PO SCH (09:07)
[2018-02-09] MEDS ORDERED: diazePAM 5 MG TABLET PO SCH (10:00)
--- NOTE | 2018-02-09 12:16 | DS ---
[facility] Detox Discharge Summary Admission Date: 02/05/18 Discharge Date: 02/09/18 - History Present History: Alcohol Dependence, Cocaine Dependence Additional Comments: Patient completed detox successfully and discharged safely. Instructed to follow up with his PCP within 1-2 weeks. Pertinent Past History: Alcohol dependence Cocaine dependence PPD Positive Nicotine dependence Schizophrenia Depression Alcohol related seizure disorder Arthritis - Physical Exam Results Vital Signs: Vital Signs Temperature 96.1 F L 02/09/18 06:20 Pulse Rate 58 L 02/09/18 06:20 Respiratory Rate 16 02/09/18 06:20 Blood Pressure 105/56 L 02/09/18 06:20 O2 Sat by Pulse Oximetry (%) Pertinent Admission Physical Exam Findings: Withdrawal symptoms Laboratory Tests 02/06/18 02/06/18 02/06/18 07:30 07:30 07:30 WBC 6.4 RBC 4.03 Hgb 13.5 Hct 40.8 MCV 101.2 H MCH 33.5 MCHC 33.1 RDW 14.7 Plt Count 154 MPV 10.7 D Sodium 140 Potassium 3.9 Chloride 107 Carbon Dioxide 27 Anion Gap 6 L BUN 11 Creatinine 0.7 Creat Clearance w eGFR > 60 Random Glucose 87 Calcium 7.9 L Total Bilirubin 0.6 AST 25 ALT 15 Alkaline Phosphatase 97 Total Protein 6.5 Albumin 3.3 L RPR Titer Nonreactive Labs reviewed - Treatment Hospital Course: Detox Protocol Followed, Detoxed Safely, Responded well, Discharged Condition Good - Medication Discharge Medications: Ambulatory Orders Unobtainable 06/03/17 - Diagnosis (1) Depression Status: Acute (2) Alcohol dependence with uncomplicated withdrawal Status: Acute (3) Cocaine dependence, uncomplicated Status: Acute (4) Arthritis Status: Chronic (5) History of positive PPD Status: Chronic (6) Nicotine dependence Status: Chronic Qualifiers: Nicotine product type: cigarettes Substance use status: in withdrawal Qualified Code(s): F17.213 - Nicotine dependence, cigarettes, with withdrawal (7) Schizophrenia Status: Chronic Qualifiers: Schizophrenia type: paranoid schizophrenia Qualified Code(s): F20.0 - Paranoid schizophrenia (8) Alcohol related seizure Status: Suspected - AMA Did Patient Leave Against Medical Advice: No (F/U with PCP within 1-2 weeks)
== END 2018-02-09 09:07 | disposition home or self-care (01) | DRG 774 ==
LOC: YASAS 12:24 → Y3N 17:29
PROC: HZ2ZZZZ Detoxification Services for Substance Abuse Treatment (ICD-10-PCS; principal; 2018-02-05)
DX: F10.230 Alcohol dependence with withdrawal, uncomplicated (principal); F14.20 Cocaine dependence, uncomplicated; F17.213 Nicotine dependence, cigarettes, with withdrawal; F19.24 Other psychoactive substance dependence with psychoactive substance-induced mood disorder; F19.282 Other psychoactive substance dependence with psychoactive substance-induced sleep disorder; F20.0 Paranoid schizophrenia; F32.9 Major depressive disorder, single episode, unspecified; G47.00 Insomnia, unspecified; M12.9 Arthropathy, unspecified; R76.11 Nonspecific reaction to tuberculin skin test without active tuberculosis
CPT/HCPCS: 36415; 80053; 85027; 86593

== ENCOUNTER 2018-03-25 17:37 | Inpatient (IN) | payer OTHER ==
--- NOTE | 2018-03-25 21:39 | HP ---
CIWA Score Nausea/Vomitin Muscle Tremors: 2 Anxiety: 2 Agitation: 2 Paroxysmal Sweats: 2 Orientation: 1-Uncertain about Date Tacttile Disturbances: 2-Mild Itch/Numbness/Burn Auditory Disturbances: 0-None Visual Disturbances: 0-None Headache: 0-None Present CIWA-Ar Total Score: 14 - Admission Criteria OAS Guidelines: Admission for Medically Managed Detox: Requires at least one of the followin. CIWA greater than 12 2. Seizures within the past 24 hours 3. Delirium tremens within the past 24 hours 4. Hallucinations within the past 24 hours 5. Acute intervention needed for co occurring medical disorder 6. Acute intervention needed for co occurring psychiatric disorder 7. Severe withdrawal that cannot be handled at a lower level of care (continued vomiting, continued diarrhea, abnormal vital signs) requiring intravenous medication and/or fluids 8. Patient presents the following: CIWA greater than 12 Admission Criteria Met: Admission criteria met Admission ROS [facility] Chief Complaint: " I am here to detox" Allergies/Adverse Reactions: Allergies Allergy/AdvReac Type Severity Reaction Status Date / Time aspirin Allergy Intermediate Nausea Verified 02/09/18 03:51 ibuprofen Allergy Nausea Verified 02/09/18 03:51 chlorpromazine HCl AdvReac Severe Swelling Verified 02/09/18 03:51 [From Thorazine] haloperidol [From Haldol] AdvReac Severe Swelling Verified 02/09/18 03:51 haloperidol lactate AdvReac Severe Swelling Verified 02/09/18 03:51 [From Haldol] chlordiazepoxide AdvReac stomach Verified 02/09/18 03:51 [From Librium] pain, coughing up blood, diarrhea History of Present Illness: 38 yo male with hx of chronic alcohol dependence is here seeking detox for withdrawal sx, this is one of multiple admission. Last detox [facility] January 2018. Patient reports her was referred by his outreach program. PMHX: OA, Schizophrenia, depression dn anxiety, non-complaint with meds. Denies suicidal / homicidal ideation. Denies hx of seizures or blackouts. Denies any legal troubles at this time. Longest period of sobriety three years. Exam Limitations: No Limitations - Ebola screening Have you traveled outside of the country in the last 21 days: No (N) Have you had contact with anyone from an Ebola affected area: No Do you have a fever: No - Review of Systems Constitutional: Chills, Loss of Appetite, Changes in sleep, Weakness, Unintentional Wgt. Loss EENT: reports: No Symptoms Reported Respiratory: reports: No Symptoms reported Cardiac: reports: No Symptoms Reported GI: reports: Nausea, Poor Appetite, Poor Fluid Intake : reports: No Symptoms Reported Musculoskeletal: reports: No Symptoms Reported Integumentary: reports: No Symptoms Reported Neuro: reports: Numbness (left finger tips) Endocrine: reports: Increased Thirst Hematology: reports: No Symptoms Reported Psychiatric: reports: Orientated x3, Anxious, Depressed Other Systems: Reviewed and Negative Patient History - Patient Medical History Hx Anemia: No Hx Asthma: No Hx Chronic Obstructive Pulmonary Disease (COPD): No Hx Cancer: No Hx Cardiac Disorders: No Hx Congestive Heart Failure: No Hx Hypertension: No Hx Hypercholesterolemia: No Hx Pacemaker: No HX Cerebrovascular Accident: No Hx Seizures: No Hx Dementia: No Hx Diabetes: No Hx Gastrointestinal Disorders: No Hx Liver Disease: No Hx Genitourinary Disorders: No Hx Sexually Transmitted Disorders: No Hx Renal Disease (ESRD): No Hx Thyroid Disease: No Hx Human Immunodeficiency Virus (HIV): No Hx Hepatitis C: No Hx Depression: Yes Hx Suicide Attempt: No Hx Bipolar Disorder: No Hx Schizophrenia: Yes - Patient Surgical History Past Surgical History: Yes Hx Neurologic Surgery: No Hx Cataract Extraction: No Hx Cardiac Surgery: No Hx Lung Surgery: No Hx Breast Surgery: No Hx Breast Biopsy: No Hx Abdominal Surgery: No Hx Appendectomy: No Hx Cholecystectomy: No Hx Genitourinary Surgery: No Hx Section: No Hx Orthopedic Surgery: Yes (reconstructive knee sx as a child) Anesthesia Reaction: No - PPD History Previous Implant?: No (NEG chest x-ray 05/2017) Date: 08/06/12 Results: positive PPD PPD to be Administered?: No - Smoking Cessation Smoking history: Current every day smoker Have you smoked in the past 12 months: Yes Aproximately how many cigarettes per day: 7 Cigars Per Day: 0 Hx Chewing Tobacco Use: No Initiated information on smoking cessation: Yes 'Breaking Loose' booklet given: 03/25/18 - Substance & Tx. History Hx Alcohol Use: Yes Hx Substance Use: Yes Substance Use Type: Alcohol Hx Substance Use Treatment: Yes (Detox [facility] 02/05/18 -02/09/18) - Substances Abused Alcohol Route: Oral Frequency: Daily Amount used: 5 pints Age of first use: 13 Date of Last Use: 03/25/18 Family Disease History - Family Disease History Family Disease History: Other: Father (ETOH DEPENDENCE ) Admission Physical Exam [facility] - Physical General Appearance: Yes: No Apparent Distress, Thin, Anxious HEENTM: Yes: EOMI, Hearing grossly Normal, Normal ENT Inspection, Normocephalic , Normal Voice, GUS, Pharynx Normal, Tm's normal, Other (poor dentition) Respiratory: Yes: Chest Non-Tender, Lungs Clear, Normal Breath Sounds, No Respiratory Distress, No Accessory Muscle Use Neck: Yes: Within Normal Limits Breast: Yes: Breast Exam Deferred Cardiology: Yes: Regular Rhythm, Regular Rate Abdominal: Yes: Normal Bowel Sounds, Non Tender, Flat, Soft Genitourinary: Yes: Within Normal Limits Back: Yes: Within Normal Limits Musculoskeletal: Yes: full range of Motion, Gait Steady, Pelvis Stable Extremities: Yes: Normal Capillary Refill, Normal Inspection, Normal Range of Motion, Non-Tender Neurological: Yes: Within Normal Limits Integumentary: Yes: Normal Color, Warm, Moist Lymphatic: Yes: Within Normal Limits - Addiitonal Findings: Patient reports allergies to librium, reports no allergies to valium and has taken medication in the past with no adverse effect. - Diagnostic (1) Alcohol dependence with uncomplicated withdrawal Current Visit: Yes Status: Acute (2) Arthritis Current Visit: Yes Status: Chronic (3) Nicotine dependence Current Visit: Yes Status: Chronic Qualifiers: Nicotine product type: cigarettes Substance use status: in withdrawal Qualified Code(s): F17.213 - Nicotine dependence, cigarettes, with withdrawal Cleared for Admission [facility] - Detox or Rehab [facility] Level of Care: Medically Managed Detox Regimen/Protocol: Valium [facility] Breath Alcohol Content Breath Alcohol Content: 0.012
[2018-03-25] MEDS ORDERED: ACETAMINOPHEN 325 MG TABLET (FP) PO PRN (21:45)
[2018-03-25] MEDS ORDERED: guaiFENesin/D-METHORPHAN HB 10 ML UNIT-DOSE CUPS PO PRN (21:45)
[2018-03-25] MEDS ORDERED: LOPERAMIDE HCL 2 MG CAPSULE PO PRN (21:45)
[2018-03-25] MEDS ORDERED: NICOTINE POLACRILEX 2 MG GUM BC PRN (21:45)
[2018-03-25] MEDS ORDERED: P-EPHED 60MG/TRIPROLIDI 2.5MG TABLET PO PRN (21:45)
[2018-03-25] MEDS ORDERED: diazePAM 5 MG TABLET PO ONE (21:45)
[2018-03-25] MEDS ORDERED: MAG HYDROX/AL HYDROX/SIMETH 30 ML UNIT-DOSE CUP PO PRN (21:45)
[2018-03-25] MEDS ORDERED: MAGNESIUM CITRATE 300 ML BOTTLE PO PRN (21:45)
[2018-03-25] MEDS ORDERED: MAGNESIUM HYDROX 2400MG/30ML ORAL SUSPENSION 30 ML CUP PO PRN (21:45)
[2018-03-25] MEDS ORDERED: MENTHOL/PHENOL 1 EACH UD MM PRN (21:45)
[2018-03-25 23:43] VITALS: BMI 26.6
[2018-03-26] MEDS ORDERED: diazePAM 5 MG TABLET PO ONE (00:28)
[2018-03-26] MEDS: diazePAM 5 MG TABLET PO SCH ×4 (00:33→23:27)
[2018-03-26] MEDS: THIAMINE HCL 100 MG TABLET (FP) PO SCH ×2 (00:34→23:28)
[2018-03-26] MEDS: MELATONIN 5 MG TABLETS PO PRN (00:49)
[2018-03-26] MEDS ORDERED: hydrOXYzine PAMOATE 50 MG CAPSULE (FP) PO PRN (09:06)
[2018-03-26] MEDS ORDERED: COLLOIDAL OATMEAL 1 BAR EACH TP PRN (09:06)
[2018-03-26] MEDS: PRENATAL VITAMINS W/ FOLIC ACID TABLET (FP) PO SCH (09:12)
[2018-03-26] MEDS: diazePAM 5 MG TABLET PO PRN (09:13)
--- NOTE | 2018-03-26 09:23 | CONSULT ---
[facility] Psychiatric Consult - Data Date of interview: 03/26/18 Admission source: Nursing referral Identifying data: This is a 38 years old male with history of Schizophremia, history of psychiatric hospitalizations, with long history of chronic alcohol dependence, Opioids, Cocaine, PCP, nicotine dependence is here seeking detox for withdrawal sx, this is one of multiple admission. Last detox [facility] January 2018. Patient reports her was referred by his outreach program. PMHX: OA, Schizophrenia, depression dn anxiety, non-complaint with meds. Denies suicidal / homicidal ideation. Denies hx of seizures or blackouts. Denies any legal troubles at this time. Longest period of sobriety three years. Substance Abuse History: Smoking history: Current every day smoker. Have you smoked in the past 12 months: Yes. Aproximately how many cigarettes per day: 7. Cigars Per Day: 0. Hx Chewing Tobacco Use: No. Initiated information on smoking cessation: Yes. 'Breaking Loose' booklet given: 03/25/18. - Substance & Tx. History. Hx Alcohol Use: Yes. Hx Substance Use: Yes. Substance Use Type : Alcohol. Hx Substance Use Treatment: Yes (Detox [facility] 02/05/18 -02/09/18). - Substances Abused. Alcohol. Route: Oral. Frequency: Daily. Amount used: 5 pints. Age of first use: 13. Date of Last Use: 03/25/18 Psychiatric History: Patient reports to carry Bipolar Disorder and Deopressive disorder, reports multiple , more then 5 times, psychiatric hospitalization history, with most recent admission to [facility] 3 weeks ago for safety. Patient reports taking prior to admission: Wellbutrin Er 150mg poqd. Buspar 10mg po bid. Seroquel 100mg po tid. Patient reports he does not have Schizophrenia, and He does have Bipolar Disorder and depression. Physical/Sexual Abuse/Trauma History: Denies Additional Comment: Wellbutrin Er 150mg poqd. Buspar 10mg po bid. Seroquel 100mg po tid Mental Status Exam - Mental Status Exam Alert and Oriented to: Person Cognitive Function: Fair Patient Appearance: Unkempt Mood: Nervous, Anxious, Irritable Affect: Labile Patient Behavior: Cooperative, Agitated Speech Pattern: Excessive, Pressured Voice Loudness: Moderately Loud Thought Process: Goal Oriented Hallucinations: Denies Suicidal Ideation: Denies Homicidal Ideation: Denies Insight/Judgement: Fair Sleep: Difficulty falling asleep Appetite: Fair Muscle strength/Tone: Normal Gait/Station: Normal Additional Comments: Wellbutrin Er 150mg poqd. Buspar 10mg po bid. Seroquel 100mg po tid Psychiatric Findings - Problem List ([place] 1, 2,3) (1) Alcohol dependence with uncomplicated withdrawal Current Visit: Yes Status: Acute (2) Nicotine dependence Current Visit: Yes Status: Chronic Qualifiers: Nicotine product type: cigarettes Substance use status: in withdrawal Qualified Code(s): F17.213 - Nicotine dependence, cigarettes, with withdrawal (3) Opioid dependence with withdrawal Current Visit: No Status: Acute (4) PCP (phencyclidine) abuse Current Visit: No Status: Acute (5) Substance induced mood disorder Current Visit: No Status: Acute (6) Substance-induced sleep disorder Current Visit: No Status: Acute (7) Alcohol related seizure Current Visit: No Status: Chronic (8) Bipolar disorder Current Visit: No Status: Chronic Qualifiers: Active/Remission status: currently active Current episode severity: moderate Comment: By history.Total non-adherence to OPD care. (9) Schizophrenia Current Visit: No Status: Chronic Qualifiers: Schizophrenia type: paranoid schizophrenia Qualified Code(s): F20.0 - Paranoid schizophrenia (10) Bipolar I disorder depressed with atypical features Current Visit: Yes Status: Acute - Initial Treatment Plan Initial Treatment Plan: Wellbutrin Er 150mg poqd. Buspar 10mg po bid. Seroquel 100mg po tid
[2018-03-26 10:04] LABS: HEMOGLOBIN 12.8 GM/dL (11.7-16.9); MCH 35.3 pg (25.7-33.7); MCHC 35.5 g/dl (32.0-35.9); MEAN CELL VOLUME 99.4 fl (80-96); MEAN PLT VOLUME 9.9 fl (7.5-11.1); PLATELET COUNT 197 K/MM3 (134-434); RBC 3.63 M/mm3 (4.00-5.60); RDW 13.1 % (11.9-15.9); WHITE BLOOD COUNT 6.9 K/mm3 (4.0-10.0)
[2018-03-26] MEDS: NICOTINE 14 MG/24 HOURS TOPICAL PATCH TD SCH (10:36)
[2018-03-26] MEDS: busPIRone HCL 10 MG TABLET (FP) PO SCH ×2 (10:38→23:27)
[2018-03-26 11:28] LABS: ALBUMIN 3.1 g/dl (3.4-5.0); ALK PHOS 96 U/L (45-117); ANION GAP 6 MMOL/L (8-16); BILIRUBIN,TOTAL 0.2 mg/dL (0.2-1); BLOOD UREA NITROGEN 17 mg/dL (7-18); CALCIUM 8.3 mg/dL (8.5-10.1); CHLORIDE 101 mmol/L (98-107); CO2 30 mmol/L (21-32); CREATININE 0.8 mg/dL (0.55-1.3); GLUCOSE,RANDOM 86 mg/dL (74-106); SGOT/AST 20 U/L (15-37); SGPT/ALT 13 U/L (13-61); SODIUM 138 mmol/L (136-145); TOT PROT 7.2 g/dl (6.4-8.2)
[2018-03-26] MEDS: AMMONIUM LACTATE 12% LOTION 225 GM BOTTLE TP SCH ×2 (11:35→23:27)
[2018-03-26] MEDS: QUEtiapine FUMARATE 100 MG TABLET (FP) PO SCH ×2 (14:33→23:27)
--- NOTE | 2018-03-26 18:08 | PN ---
S CIWA - CIWA Score Nausea/Vomitin-No Nausea/No Vomiting Muscle Tremors: 3 Anxiety: 5 Agitation: 4-Moderately Restless Paroxysmal Sweats: 3 Orientation: 0-Oriented Tacttile Disturbances: 2-Mild Itch/Numbness/Burn Auditory Disturbances: 0-None Visual Disturbances: 0-None Headache: 0-None Present CIWA-Ar Total Score: 17 BHS Progress Note (SOAP) Subjective: Chills, Sweating, Anxiety, Agitated, Tremors. Objective: PATIENT A & O X 3, OBSERVED AMBULATING ON UNIT. IN NO ACUTE DISTRESS. 03/26/18 18:06 Vital Signs Temperature 98.4 F 03/26/18 17:24 Pulse Rate 76 03/26/18 17:24 Respiratory Rate 20 03/26/18 17:24 Blood Pressure 140/80 03/26/18 17:24 O2 Sat by Pulse Oximetry (%) Laboratory Tests 03/26/18 03/26/18 03/26/18 07:00 07:00 07:00 WBC 6.9 RBC 3.63 L Hgb 12.8 Hct 36.0 MCV 99.4 H MCH 35.3 H MCHC 35.5 RDW 13.1 D Plt Count 197 D MPV 9.9 Sodium 138 Potassium 4.0 Chloride 101 Carbon Dioxide 30 Anion Gap 6 L BUN 17 Creatinine 0.8 Creat Clearance w eGFR > 60 Random Glucose 86 Calcium 8.3 L Total Bilirubin 0.2 AST 20 ALT 13 Alkaline Phosphatase 96 Total Protein 7.2 Albumin 3.1 L RPR Titer Nonreactive LABS NOTED. Assessment: 03/26/18 18:06 WITHDRAWAL SYMPTOMS. Plan: CONTINUE DETOX.
[2018-03-27] MEDS: diazePAM 5 MG TABLET PO PRN ×4 (02:13→20:30)
[2018-03-27] MEDS: MELATONIN 5 MG TABLETS PO PRN ×2 (02:13→22:40)
[2018-03-27] MEDS: QUEtiapine FUMARATE 100 MG TABLET (FP) PO SCH ×3 (07:17→22:39)
[2018-03-27] MEDS: PRENATAL VITAMINS W/ FOLIC ACID TABLET (FP) PO SCH (12:31)
[2018-03-27] MEDS: busPIRone HCL 10 MG TABLET (FP) PO SCH ×2 (12:31→22:39)
[2018-03-27] MEDS: NICOTINE 14 MG/24 HOURS TOPICAL PATCH TD SCH (12:32)
[2018-03-27] MEDS: diazePAM 5 MG TABLET PO SCH ×2 (12:32→22:39)
[2018-03-27] MEDS: AMMONIUM LACTATE 12% LOTION 225 GM BOTTLE TP SCH ×2 (12:33→22:39)
--- NOTE | 2018-03-27 12:38 | PN ---
Psychiatric Progress Note Vital Signs: Vital Signs Period Temp Pulse Resp BP Sys/Campbell Pulse Ox Last 24 Hr 98.1 F-98.6 F 58-76 16-20 129-140/74-80 Date of Session: 03/27/18 Chief Complaint:: Anxiety and Agitation HPI: Patient approached MD in a lobby reporting anxiety and agitation ajnd asking medication intervention, denies suicidal, homicidal ideation, denies delusion and hallucinations. Current Medications: Active Medications Generic Name Dose Route Start Last Admin Trade Name Freq PRN Reason Stop Dose Admin Acetaminophen 650 mg 03/25/18 21:45 Tylenol - PO Q4H PRN FEVER Al Hydroxide/Mg Hydroxide 30 ml 03/25/18 21:45 Mylanta Oral Suspension - PO Q6H PRN DYSPEPSIA Bupropion HCl 150 mg 03/26/18 10:00 03/27/18 12:31 Wellbutrin Xl - PO 150 mg DAILY VASYL Administration Buspirone HCl 10 mg 03/26/18 10:00 03/27/18 12:31 Buspar - PO 10 mg BID VASYL Administration Colloidal Oatmeal 1 applic 03/26/18 09:06 03/26/18 11:35 Aveeno Soap - TP 1 applic DAILY PRN Administration HYGEINE Diazepam 10 mg 03/25/18 21:45 03/27/18 08:32 Valium - PO 03/28/18 21:44 10 mg Q4H PRN Administration WITHDRAWAL(CONT SUBST) Diazepam 5 mg 03/27/18 10:00 03/27/18 12:32 Valium - PO 03/28/18 22:01 5 mg BID VASYL Administration Diazepam 5 mg 03/29/18 10:00 Valium - PO 03/29/18 10:01 DAILY VASYL Eucalyptus/Menthol/Phenol/Sorbitol 1 each 03/25/18 21:45 Cepastat Lozenge - MM Q4H PRN SORE THROAT Guaifenesin 10 ml 03/25/18 21:45 Robitussin Dm - PO Q6H PRN COUGH Hydroxyzine Pamoate 50 mg 03/27/18 12:33 Vistaril - PO Q3H5XD PRN AGITATION Lactic Acid 1 applic 03/26/18 10:00 03/27/18 12:33 Lac-Hydrin 12 TP 1 applic BID VASYL Administration Loperamide HCl 4 mg 03/25/18 21:45 Imodium - PO Q6H PRN DIARRHEA Magnesium Citrate 300 ml 03/25/18 21:45 Citroma - PO Q48H PRN CONSTIPATION Magnesium Hydroxide 30 ml 03/25/18 21:45 Milk Of Magnesia - PO DAILY PRN CONSTIPATION Melatonin 5 mg 03/25/18 22:00 03/27/18 02:13 Melatonin PO 5 mg HS PRN Administration INSOMNIA Nicotine 14 mg 03/26/18 10:00 03/27/18 12:32 Nicoderm Patch - TD Not Given DAILY VASYL Nicotine Polacrilex 2 mg 03/25/18 21:45 Nicorette Gum - BC Q2H PRN NICOTINE REPLACEMENT RX Multivit/Folic Acid/Iron 1 tab 03/26/18 10:00 03/27/18 12:31 Vitamins (Sjr) - PO 1 tab DAILY VASYL Administration Pseudoephedrine/Triprolidine 1 combo 03/25/18 21:45 Actifed - PO TID PRN NASAL CONGESTION Quetiapine Fumarate 100 mg 03/26/18 14:00 03/27/18 07:17 Seroquel - PO 100 mg TID VASYL Administration Thiamine HCl 100 mg 03/25/18 22:00 03/26/18 23:28 Vitamin B1 - PO Not Given HS VASYL Medication(s) Change(s): Vistaril 50mg po q3 for agitation and anxiety Provider note:: Supporitve psychotherapy provided. Mental Status Exam - Mental Status Exam Alert and Oriented to: Place, Person Cognitive Function: Fair Patient Appearance: Unkempt Mood: Anxious, Irritable Affect: Labile Patient Behavior: Impulsive, Talkative, Agitated Speech Pattern: Excessive Voice Loudness: Normal Thought Process: Goal Oriented Thought Disorder: Being Controlled Hallucinations: Denies Suicidal Ideation: Denies Homicidal Ideation: Denies Insight/Judgement: Fair Sleep: Difficulty falling asleep Appetite: Fair Muscle strength/Tone: Mild Hypertonicity Gait/Station: Normal Additional Comments: Vistaril 50mg po q3 for agitation and anxiety Psychiatric Treatment Plan - Problem List (1) Alcohol dependence with uncomplicated withdrawal Current Visit: Yes (2) Nicotine dependence Current Visit: Yes Qualifiers: Nicotine product type: cigarettes Substance use status: in withdrawal Qualified Code(s): F17.213 - Nicotine dependence, cigarettes, with withdrawal (3) Opioid dependence with withdrawal Current Visit: No (4) PCP (phencyclidine) abuse Current Visit: No (5) Substance induced mood disorder Current Visit: No (6) Substance-induced sleep disorder Current Visit: No (7) Alcohol related seizure Current Visit: No (8) Bipolar disorder Current Visit: No Qualifiers: Active/Remission status: currently active Current episode severity: moderate Comment: By history.Total non-adherence to OPD care. (9) Schizophrenia Current Visit: No Qualifiers: Schizophrenia type: paranoid schizophrenia Qualified Code(s): F20.0 - Paranoid schizophrenia (10) Bipolar I disorder depressed with atypical features Current Visit: Yes Initial treatment plan: Vistaril 50mg po q3 for agitation and anxiety
[2018-03-27] MEDS: hydrOXYzine PAMOATE 50 MG CAPSULE (FP) PO PRN ×3 (13:01→22:44)
--- NOTE | 2018-03-27 16:52 | PN ---
S CIWA - CIWA Score Nausea/Vomitin-No Nausea/No Vomiting Muscle Tremors: 2 Anxiety: 4-Mod. Anxious/Guarded Agitation: 4-Moderately Restless Paroxysmal Sweats: 2 Orientation: 0-Oriented Tacttile Disturbances: 1-Very Mild Itch/Numbness Auditory Disturbances: 0-None Visual Disturbances: 0-None Headache: 0-None Present CIWA-Ar Total Score: 13 BHS Progress Note (SOAP) Subjective: Anxious, Agitated, Tremors, Sweating. Objective: PATIENT A & O X 3, OBSERVED AMBULATING ON UNIT. IN NO ACUTE DISTRESS. 03/27/18 16:50 Vital Signs Temperature 97.5 F L 03/27/18 13:59 Pulse Rate 75 03/27/18 13:59 Respiratory Rate 18 03/27/18 13:59 Blood Pressure 121/74 03/27/18 13:59 O2 Sat by Pulse Oximetry (%) Laboratory Tests 03/26/18 03/26/18 03/26/18 07:00 07:00 07:00 WBC 6.9 RBC 3.63 L Hgb 12.8 Hct 36.0 MCV 99.4 H MCH 35.3 H MCHC 35.5 RDW 13.1 D Plt Count 197 D MPV 9.9 Sodium 138 Potassium 4.0 Chloride 101 Carbon Dioxide 30 Anion Gap 6 L BUN 17 Creatinine 0.8 Creat Clearance w eGFR > 60 Random Glucose 86 Calcium 8.3 L Total Bilirubin 0.2 AST 20 ALT 13 Alkaline Phosphatase 96 Total Protein 7.2 Albumin 3.1 L RPR Titer Nonreactive LABS NOTED. Assessment: 03/27/18 16:51 WITHDRAWAL SYMPTOMS. Plan: CONTINUE DETOX.
[2018-03-27] MEDS: THIAMINE HCL 100 MG TABLET (FP) PO SCH (22:40)
[2018-03-28] MEDS: QUEtiapine FUMARATE 100 MG TABLET (FP) PO SCH (05:39)
[2018-03-28] MEDS: diazePAM 5 MG TABLET PO PRN (05:39)
[2018-03-28] MEDS: hydrOXYzine PAMOATE 50 MG CAPSULE (FP) PO PRN (08:55)
[2018-03-28 09:20] VITALS: BP 139/84; PULSE 65; TEMP 98.4
[2018-03-28] MEDS: busPIRone HCL 10 MG TABLET (FP) PO SCH (10:09)
[2018-03-28] MEDS: diazePAM 5 MG TABLET PO SCH (10:09)
[2018-03-28] MEDS: PRENATAL VITAMINS W/ FOLIC ACID TABLET (FP) PO SCH (10:09)
[2018-03-28] MEDS: NICOTINE 14 MG/24 HOURS TOPICAL PATCH TD SCH (10:10)
[2018-03-28] MEDS: AMMONIUM LACTATE 12% LOTION 225 GM BOTTLE TP SCH (10:12)
--- NOTE | 2018-03-28 12:55 | PN ---
S Progress Note Note: pt d/c today; pt has an opportunity for pick to go to inpatient rehab [facility]. pt states he is feeling fine and excited to go to his next level of care.
--- NOTE | 2018-03-28 12:59 | DS ---
[facility] Detox Discharge Summary Admission Date: 03/25/18 Discharge Date: 03/28/18 - History Present History: Alcohol Dependence, Cannabis Dependence, Cocaine Dependence, Opioid Dependence, Pcp Dependence - Physical Exam Results Vital Signs: Vital Signs Temperature 98.4 F 03/28/18 09:20 Pulse Rate 65 03/28/18 09:20 Respiratory Rate 03/28/18 09:20 Blood Pressure 139/84 03/28/18 09:20 O2 Sat by Pulse Oximetry (%) - Treatment Hospital Course: Detox Protocol Followed, Detoxed Safely, Responded well, Discharged Condition Good, Rehab Referral Accepted - Medication Discharge Medications: Ambulatory Orders Quetiapine Fumarate [Seroquel] 100 mg PO BID 03/25/18 - Diagnosis (1) Alcohol dependence with uncomplicated withdrawal Current Visit: Yes Status: Chronic (2) Bipolar I disorder depressed with atypical features Current Visit: Yes Status: Acute (3) Arthritis Current Visit: Yes Status: Chronic (4) Nicotine dependence Current Visit: Yes Status: Chronic Qualifiers: Nicotine product type: cigarettes Substance use status: uncomplicated Qualified Code(s): F17.210 - Nicotine dependence, cigarettes, uncomplicated (5) Cannabis dependence Current Visit: Yes Status: Chronic (6) Opioid dependence with withdrawal Current Visit: Yes Status: Chronic (7) PCP (phencyclidine) abuse Current Visit: Yes Status: Chronic (8) Substance induced mood disorder Current Visit: No Status: Acute (9) Substance-induced sleep disorder Current Visit: No Status: Acute (10) Bipolar disorder Current Visit: No Status: Chronic Qualifiers: Active/Remission status: currently active Current episode severity: moderate (11) Cocaine dependence, uncomplicated Current Visit: Yes Status: Chronic (12) Depression Current Visit: No Status: Chronic (13) History of positive PPD Current Visit: No Status: Chronic (14) Insomnia Current Visit: No Status: Chronic Qualifiers: Insomnia type: unspecified Qualified Code(s): G47.00 - Insomnia, unspecified (15) Low back pain Current Visit: Yes Status: Chronic Qualifiers: Chronicity: chronic Back pain laterality: bilateral Sciatica presence: without sciatica Qualified Code(s): M54.5 - Low back pain; G89.29 - Other chronic pain (16) Schizophrenia Current Visit: Yes Status: Chronic Qualifiers: Schizophrenia type: paranoid schizophrenia Qualified Code(s): F20.0 - Paranoid schizophrenia - AMA Did Patient Leave Against Medical Advice: No (referred to [facility] in patient rehab )
[2018-03-29] MEDS ORDERED: diazePAM 5 MG TABLET PO SCH (10:00)
== END 2018-03-28 11:05 | disposition home or self-care (01) | DRG 773 ==
LOC: YASAS 17:37 → Y6N 22:47
PROVIDERS: ADMIT Surgery; ATTEND Surgery
PROC: HZ2ZZZZ Detoxification Services for Substance Abuse Treatment (ICD-10-PCS; principal; 2018-03-25)
DX: F11.23 Opioid dependence with withdrawal (principal); F10.230 Alcohol dependence with withdrawal, uncomplicated; F14.20 Cocaine dependence, uncomplicated; F12.20 Cannabis dependence, uncomplicated; F16.10 Hallucinogen abuse, uncomplicated; F17.210 Nicotine dependence, cigarettes, uncomplicated; F31.89 Other bipolar disorder; F19.24 Other psychoactive substance dependence with psychoactive substance-induced mood disorder; F19.282 Other psychoactive substance dependence with psychoactive substance-induced sleep disorder; F20.0 Paranoid schizophrenia; R76.11 Nonspecific reaction to tuberculin skin test without active tuberculosis; M19.90 Unspecified osteoarthritis, unspecified site; M54.5 Low back pain; G89.29 Other chronic pain; Z88.6 Allergy status to analgesic agent; Z88.8 Allergy status to other drugs, medicaments and biological substances; Z86.69 Personal history of other diseases of the nervous system and sense organs
CPT/HCPCS: 36415; 80053; 85027; 86593